=== PATIENT | female | born 1950 | race Caucasian/White ===

== ENCOUNTER → 2017-07-16 | Outpatient (CLI) | payer MEDICARE, BC | LOC: M WHC 11:55 | DX: Z12.31 Encounter for screening mammogram for malignant neoplasm of breast (principal) | CPT/HCPCS: 77067 ==

== ENCOUNTER → 2018-07-26 | Outpatient (CLI) | payer MEDICARE, BC ==
[~2018-07-26] MED LIST: CALC500T49 PO; FIBE625T PO; GLUC15002 PO; MULT1TAB10 PO; TRIAMT/HCTZ PO
--- NOTE | 2018-07-26 09:51 | REPMRS ---
Patient History The patient states she had a clinical breast exam in 07/09 Family history of colorectal cancer at age 50 or over in mother. Digital Woman Screen Mammo: July 26, 2018 - Exam #: [id number] Bilateral CC and MLO view(s) were taken. Technologist: Alisa Kiran, Technologist Prior study comparison: July 16, 2017, digital woman screen mammo performed at [facility]. May 22, 2016, digital woman screen mammo performed at [facility]. May 21, 2015, digital woman screen mammo performed at [facility]. FINDINGS: There are scattered fibroglandular densities. There is a stable benign intramammary lymph node in the upper outer quadrant on the left again noted. There has been no change in the appearance of the mammogram from the prior studies. There is a mild amount of scattered fibroglandular density which is fairly symmetric. There is no interval development of dominant mass, architectural distortion, or clustered microcalcification suggestive of malignancy. 3-D tomosynthesis shows no additional findings. Assessment: BI-RADS/ACR category 2 mammogram. Benign Findings. Recommendation Routine screening mammogram of both breasts in 1 year (for women over age 40). This patient's Lifetime Breast Cancer RIsk is estimated at 5.1 %. This mammogram was interpreted with the aid of an FDA-approved computer-aided dectection system. Electronically Signed By: Deven Smith MD 07/26/18 [id number]
--- NOTE | 2018-07-27 15:29 | DEXA ---
AP SPINE L1 - L4 1.073 -1.0 0.7 LT FEMUR TOTAL 0.931 -0.6 0.9 LT NECK 0.954 -0.6 1.1 RT FEMUR TOTAL 0.964 -0.3 1.1 RT NECK 0.895 -1.0 0.7 TOTAL BODY TOTAL OTHER COMMENTS: Normal bone densitometry of the left hip. There is low bone density of the spine. There is low bone density of the right hip. The density of the spine has decreased 2.3% since the initial exam on 01/01/2016. The spine density has decreased 3.2% since the most recent exam on 05/06/2011. The density of the left hip has decreased 18.6% since the initial exam on 01/01/2016. The density of the left hip has decreased 11.0% since the most recent exam on 05/06/2011. The density of the right hip has decreased 12.9% since the initial exam on 01/01/2016. The density of the right hip has decreased 8.5% since the most recent exam on 05/06/2011. FOLLOW-UP: Recommendation for the next bone density exam: 2 years. KARLI
== END ==
LOC: M WHC 07:49
PROVIDERS: ATTEND Nurse Practitioner Family
DX: Z12.31 Encounter for screening mammogram for malignant neoplasm of breast (principal); Z13.820 Encounter for screening for osteoporosis

== ENCOUNTER 2018-08-03 07:08 | Day surgery (SDC) | payer MEDICARE, BC, OTHER ==
[~2018-08-03] VITALS: Ht 162.6 cm; Wt 67.9 kg
[~2018-08-03 07:08] MED LIST changes: +LIDOCAINE 2% INJ 100 MG/5 ML SDV (FOR ANES.) As Ordered ONE; +PROPOFOL 200 MG/20 ML VIAL As Ordered ONE
[2018-08-03] MEDS ORDERED: NS 1,000 ML IV ONE (07:30)
--- NOTE | 2018-08-03 08:03 | ROOR ---
Patient Name: Phyllis Lemus Procedure Date: 08/03/2018 7:34 AM Date of : 1950 Age: 68 Room: [facility] Gender: Female Note Status: Finalized Procedure: Total Colonoscopy to Cecum + Biopsy Polypectomy Indications: Colon cancer screening in patient at increased risk: Colorectal cancer in mother, Last colonoscopy: 2013 Providers: Stone Rodríguez MD Referring MD: KOLE CARDENAS NP Requesting Provider: Medicines: Monitored Anesthesia Care Complications: No immediate complications. Procedure: Pre-Anesthesia Assessment: - The heart rate, respiratory rate, oxygen saturations, blood pressure, adequacy of pulmonary ventilation, and response to care were monitored throughout the procedure. The Colonoscope was introduced through the anus and advanced to the cecum, identified by appendiceal orifice and ileocecal valve. The colonoscopy was performed without difficulty. The patient tolerated the procedure well. The quality of the bowel preparation was good. Findings: The perianal and digital rectal examinations were normal. Non-bleeding internal hemorrhoids were found during retroflexion. The hemorrhoids were small and Grade I (internal hemorrhoids that do not prolapse). Multiple small and large-mouthed diverticula were found in the recto-sigmoid colon, sigmoid colon and descending colon. A diminutive polyp was found at 50 cm proximal to the anus. The polyp was sessile. The polyp was removed with a jumbo cold forceps. Resection and retrieval were complete. The exam was otherwise without abnormality on direct and retroflexion views. Impression: - Non-bleeding internal hemorrhoids. - Diverticulosis in the recto-sigmoid colon, in the sigmoid colon and in the descending colon. - One diminutive polyp at 50 cm proximal to the anus, removed with a jumbo cold forceps. Resected and retrieved. - The examination was otherwise normal on direct and retroflexion views. - The exam was otherwise normal to the cecum. Recommendation: - Patient has a contact number available for emergencies. The signs and symptoms of potential delayed complications were discussed with the patient. Return to normal activities tomorrow. Written discharge instructions were provided to the patient. - High fiber diet. - Discharge patient to home. - Continue present medications. - Await pathology results. - Telephone GI clinic for pathology results in 1 week. - Repeat colonoscopy in 5 years for screening purposes. - Return to referring physician. - Check Portal Online for Path Results.([email or web address]) - The findings and recommendations were discussed with the patient's family. Stone Rodríguez MD Stone Rodríguez MD 08/03/2018 8:02:46 AM This report has been signed electronically. Number of Addenda: 0 Note Initiated On: 08/03/2018 7:34 AM Estimated Blood Loss: Estimated blood loss: none.
[2018-08-03 08:25] VITALS: BP 125/79
== END 2018-08-03 08:42 | disposition home or self-care (01) ==
LOC: M OPP 07:08
PROVIDERS: ATTEND Internal Medicine Gastroenterology
DX: Z12.11 Encounter for screening for malignant neoplasm of colon (principal); Z80.0 Family history of malignant neoplasm of digestive organs; K64.0 First degree hemorrhoids; D12.6 Benign neoplasm of colon, unspecified; K57.30 Diverticulosis of large intestine without perforation or abscess without bleeding; Z79.899 Other long term (current) drug therapy

== ENCOUNTER 2020-03-15 11:17 | Emergency (ER) | payer MEDICARE, BC, OTHER ==
[~2020-03-15 11:17] MED LIST changes: -LIDOCAINE 2% INJ 100 MG/5 ML SDV (FOR ANES.) As Ordered ONE; -PROPOFOL 200 MG/20 ML VIAL As Ordered ONE
--- NOTE | 2020-03-15 11:59 | REPVR ---
PROCEDURE INFORMATION: Exam: CT Maxillofacial Without Contrast Exam date and time: 03/15/2020 11:23 AM Age: 70 years old Clinical indication: Injury or trauma; Fall; Initial encounter; Blunt trauma (contusions or hematomas); Nose TECHNIQUE: Imaging protocol: Computed tomography images of the face without contrast. Radiation optimization: All CT scans at this facility use at least one of these dose optimization techniques: automated exposure control; mA and/or kV adjustment per patient size (includes targeted exams where dose is matched to clinical indication); or iterative reconstruction. COMPARISON: No relevant prior studies available. FINDINGS: Orbits: Orbits are normal. Globes are unremarkable. Bones/joints: There is a comminuted and focally depressed right zygoma fracture. There is a nondisplaced right lateral orbital wall fracture. There is a comminuted fracture of the right inferolateral maxillary sinus wall. There is a nondisplaced right anterior maxillary sinus wall fracture. Paranasal sinuses: There is opacification of scattered ethmoid air cells. There is an air-fluid level within the right maxillary sinus. Soft tissues: There is right periorbital/facial soft tissue swelling. IMPRESSION: Multifocal right facial fractures. Electronically signed by: Sydnie King On 03/15/2020 11:58:44 AM
[2020-03-15] MEDS ORDERED: ONDANSETRON 4 MG ORAL DISINTEGRATING TAB PO ONE (12:15)
[2020-03-15] MEDS ORDERED: ACETAMINOPHEN TAB 650MG DOSE (2X325MG) PO ONE (12:15)
[2020-03-15] MEDS ORDERED: BOOSTRIX/ADACEL VACCINE (DIPHTH/PERTUSS/ACELL/TETANUS) 0.5ML SYR IM ONE (12:15)
--- NOTE | 2020-03-15 12:16 | REPVR ---
PROCEDURE INFORMATION: Exam: CT Head Without Contrast Exam date and time: 03/15/2020 11:22 AM Age: 70 years old Clinical indication: Injury or trauma; Fall; Initial encounter; Blunt trauma (contusions or hematomas) TECHNIQUE: Imaging protocol: Computed tomography of the head without contrast. Radiation optimization: All CT scans at this facility use at least one of these dose optimization techniques: automated exposure control; mA and/or kV adjustment per patient size (includes targeted exams where dose is matched to clinical indication); or iterative reconstruction. COMPARISON: No relevant prior studies available. FINDINGS: Brain: There is no acute intracranial hemorrhage or mass effect. Mild diffuse volume loss is within the range of normal for patient age. There are small vessel ischemic changes within the periventricular and subcortical white matter, but the normal garcia/white matter delineation is maintained. Cerebral ventricles: No ventriculomegaly. Bones/joints: There are incompletely imaged right zygoma, right lateral orbital wall and right maxillary sinus fractures, seen to better advantage on the concurrent CT maxillofacial examination reported separately. Paranasal sinuses: Hemorrhage layers within the right maxillary sinus. Mastoid air cells: Visualized mastoid air cells are well aerated. Soft tissues: Unremarkable. IMPRESSION: No acute hemorrhage or calvarial fracture. Right facial fractures Electronically signed by: Sydnie King On 03/15/2020 12:16:01 PM
--- NOTE | 2020-03-15 12:18 | REPVR ---
PROCEDURE INFORMATION: Exam: CT Cervical Spine Without Contrast Exam date and time: 03/15/2020 11:22 AM Age: 70 years old Clinical indication: Injury or trauma; Fall; Initial encounter; Blunt trauma TECHNIQUE: Imaging protocol: Computed tomography images of the cervical spine without contrast. Radiation optimization: All CT scans at this facility use at least one of these dose optimization techniques: automated exposure control; mA and/or kV adjustment per patient size (includes targeted exams where dose is matched to clinical indication); or iterative reconstruction. COMPARISON: No relevant prior studies available. FINDINGS: Vertebrae: There is straightening of the normal cervical lordosis. No acute fracture. Normal alignment. Discs/Spinal canal/Neural foramina: There is moderate to severe intervertebral disc space loss at C5/. There is multilevel facet hypertrophy asymmetric to the left. Soft tissues: Thyroid gland is diffusely enlarged with small nodules. Lungs: Lung apices are normal. IMPRESSION: No acute fracture. Electronically signed by: Sydnie King On 03/15/2020 12:18:11 PM
[2020-03-15] MEDS ORDERED: LIDOCAINE W/EPINEPHRINE 1% 20ML VIAL SC ONE (12:45)
[2020-03-15] MEDS ORDERED: NS 500 ML IV ONE (13:45)
[2020-03-15 14:08] LABS: BASO % 0.3 % (0.0-1.0); EOS # 0.2 10^3/uL (0.0-0.5); EOS % 1.9 % (0.0-3.0); HEMATOCRIT 40.6 % (36.0-47.0); HEMOGLOBIN 13.7 g/dl (12.0-15.5); LYMPH # 0.7 10^3/uL (1.5-5.0); LYMPH % 6.9 % (24.0-44.0); MEAN CORPUSCULAR HEMOGLOBIN 30.9 pg (27.0-33.0); MEAN CORPUSCULAR HGB CONC 33.7 g/dl (32.0-36.5); MEAN CORPUSCULAR VOLUME 91.6 fl (80.0-96.0); MONO # 0.6 10^3/uL (0.0-0.8); MONO % 5.7 % (0.0-5.0); NEUTROPHILS # 8.7 10^3/uL (1.5-8.5); NEUTROPHILS % 84.9 % (36.0-66.0); PLATELET COUNT, AUTOMATED 197 10^3/uL (150-450); RED BLOOD COUNT 4.43 10^6/uL (4.00-5.40); WHITE BLOOD COUNT 10.3 10^3/uL (4.0-10.0)
[2020-03-15 14:37] LABS: BLOOD UREA NITROGEN 13 MG/DL (7-18); CALCIUM LEVEL 9.6 MG/DL (8.8-10.2); CARBON DIOXIDE LEVEL 31 MEQ/L (21-32); CHLORIDE LEVEL 99 MEQ/L (98-107); CK-MB VALUE MASS 10.7 NG/ML (<3.6); CPK CREATINE PHOSPHOKINASE 506 U/L (26-192); CREATININE FOR GFR 0.72 MG/DL (0.55-1.30); GLOMERULAR FILTRATION RATE > 60.0 (>39); GLUCOSE, FASTING 122 MG/DL (70-100); MB/CK RELATIVE INDEX 2.11 (< OR =4); SODIUM LEVEL 135 MEQ/L (136-145); TROPONIN I < 0.02 NG/ML (< 0.10)
[2020-03-15] MEDS ORDERED: POTASSIUM CHLORIDE 10 MEQ SR TABLET PO ONE (15:30)
[2020-03-15] MEDS ORDERED: K-TA10TA2 PO (15:31)
[2020-03-15] MEDS ORDERED: ZOFR4TAB16 PO (15:31)
[2020-03-15 15:42] VITALS: BP 157/79
--- NOTE | 2020-03-15 18:12 | ED PDOC ---
Post-Departure Follow-Up dr llanes and deepa chung faxed formal report of ct max fac for fu Harrison Sterling MD Mar 15, 2020 18:11
--- NOTE | 2020-03-15 18:20 | ECGEPIP ---
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
== END 2020-03-15 15:45 | disposition home or self-care (01) ==
LOC: M ED 11:17
DX: S02.92XA Unspecified fracture of facial bones, initial encounter for closed fracture (principal); S01.81XA Laceration without foreign body of other part of head, initial encounter; W22.8XXA Striking against or struck by other objects, initial encounter; Y92.018 Other place in single-family (private) house as the place of occurrence of the external cause; I10 Essential (primary) hypertension; Z79.899 Other long term (current) drug therapy
CPT/HCPCS: 12011; 36415; 70450; 70486; 72125; 80048; 82550; 82553; 84484; 85025; 90471; 90715; 93005; 96360; 99284; Q0162

== ENCOUNTER 2020-03-22 15:15 | Emergency (ER) | payer MEDICARE, BC, OTHER ==
[~2020-03-22] VITALS: Ht 162.6 cm; Wt 66.9 kg
[~2020-03-22 15:15] MED LIST changes: +K-TA10TA2 PO; +ZOFR4TAB16 PO
[2020-03-22 15:16] VITALS: BP 139/80
[2020-03-22] MEDS ORDERED: TRIA37.53 (15:22)
== END 2020-03-22 16:19 | disposition home or self-care (01) ==
LOC: M ED 15:15
DX: Z48.02 Encounter for removal of sutures (principal); I10 Essential (primary) hypertension

== ENCOUNTER → 2020-12-20 | Outpatient (CLI) | payer MEDICARE, BC ==
[~2020-12-20] MED LIST changes: +TRIA37.53
--- NOTE | 2020-12-20 14:30 | REPMRS ---
Patient History The patient states she has not had a clinical breast exam in over a year. Patient is postmenopausal. Family history of colorectal cancer at age 50 or over in mother. No Hormone Replacement Therapy Patient states no breast complaints today. Patient has signed MRS History Sheet. Digital Woman Screen Mammo: December 20, 2020 - Exam #: [id number] Bilateral CC and MLO view(s) were taken. Technologist: Jackelyn Holder, Technologist Prior study comparison: July 26, 2018, bilateral digital woman screen mammo performed at [facility]. July 16, 2017, digital woman screen mammo performed at [facility]. May 22, 2016, digital woman screen mammo performed at [facility]. FINDINGS: There are scattered fibroglandular densities. The Volpara volumetric breast density category is:B. There has been no change in the appearance of the mammogram from the prior studies. There is a mild amount of scattered fibroglandular density which is fairly symmetric. There is no interval development of dominant mass, architectural distortion, or grouped microcalcification suggestive of malignancy. 3-D tomosynthesis shows no additional findings. Assessment: BI-RADS/ACR category 1 mammogram. Negative Mammogram. Recommendation Routine screening mammogram of both breasts in 1 year (for women over age 40). This patient's [facility] Lifetime Breast Cancer Risk is estimated at 4.5 %. This mammogram was interpreted with the aid of an FDA-approved computer-aided dectection system. Electronically Signed By: Deven Smith MD 12/20/20 [id number]
--- NOTE | 2020-12-20 14:53 | DEXAMM ---
INDICATION: M85.80 [facility] DISRD OF BONE DENSITY AND STRUCTURE. COMPARISON: Most recent comparison study July 26, 2018.. TECHNIQUE: Bone density was measured using dual-energy x-ray absorptionmetry (DEXA). FINDINGS: AP SPINE L1-L4 BMD 1.113 g/cm2 Young Adult T-Score -0.7 Age Matched Z-Score 1.1. LT FEMUR, TOTAL BMD 0.950 g/cm2 Young Adult T-Score -0.5 Age Matched Z-Score 1.1. LT NECK BMD 0.901 g/cm2 Young Adult T-Score -1.0 Age Matched Z-Score 0.8. RT FEMUR, TOTAL BMD 0.983 g/cm2 Young Adult T-Score -0.2 Age Matched Z-Score 1.2. RT NECK BMD 0.817 g/cm2 Young Adult T-Score -1.6 Age Matched Z-Score 0.2. IMPRESSION: There is normal bone density of the spine. There is normal bone density of the left hip. There is low bone density of the right hip. The density of the spine has increased 1.4% since the initial exam on December 31, 2005. The density of the spine increased 3.7% since most recent exam on July 26, 2018. The density of the left hip has decreased 17.0% since initial exam on December 31, 2005. The density of the left hip has increased 2.0% since most recent exam on July 26, 2018. The density of the right hip has decreased 11.2% since the initial exam on December 31, 2005. The density of the right hip has increased 2.0% since the most recent exam on July 26, 2018. FOLLOW-UP: Recommendation for the next bone density exam: 2 years. <Electronically signed by Deven Smith > 12/20/20 [id number]
== END ==
LOC: M WHC 13:20
PROVIDERS: ATTEND Registered Nurse
DX: Z12.31 Encounter for screening mammogram for malignant neoplasm of breast (principal); N64.89 Other specified disorders of breast; Z80.0 Family history of malignant neoplasm of digestive organs; M85.851 Other specified disorders of bone density and structure, right thigh

== ENCOUNTER → 2021-09-08 | Outpatient (CLI) | payer MEDICARE, BC | LOC: M WUC 12:32 | PROVIDERS: ATTEND Registered Nurse | DX: M79.644 Pain in right finger(s) (principal) ==

== ENCOUNTER → 2021-10-21 | Outpatient (CLI) | payer MEDICARE, BC, OTHER ==
[2021-10-21 14:30] LABS: BLOOD UREA NITROGEN 15 MG/DL (7-18); CREATININE FOR GFR 0.72 MG/DL (0.55-1.30); GLOMERULAR FILTRATION RATE > 60.0 (>39)
== END ==
LOC: M LAB 12:42
PROVIDERS: ATTEND Orthopaedic Surgery Hand Surgery
DX: R22.31 Localized swelling, mass and lump, right upper limb (principal)

== ENCOUNTER → 2021-11-11 | Outpatient (CLI) | payer MEDICARE, BC, OTHER ==
[~2021-11-11] MED LIST changes: +PROHANCE 279.3MG/ML 15ML VIAL As Ordered ONE
== END ==
LOC: M PLAIMG 10-15 06:48 → M RAD 07:16
PROVIDERS: ATTEND Orthopaedic Surgery Hand Surgery
DX: L03.123 Acute lymphangitis of right upper limb (principal); M19.041 Primary osteoarthritis, right hand
CPT/HCPCS: 73220; A9576

== ENCOUNTER → 2021-11-27 | Outpatient (CLI) | payer MEDICARE, BC, OTHER ==
[~2021-11-27] MED LIST changes: +CALCTAB64 PO; +CVS1CHW13 PO; +FAMO20TA PO; +PROBCAP14 PO; -PROHANCE 279.3MG/ML 15ML VIAL As Ordered ONE; -TRIA37.53; +TRIA37.577 PO; +VITMTA PO; +[UNRECOGNIZED DRUG - CODE] PO
== END ==
LOC: M LABSMTC 09:30
PROVIDERS: ATTEND Anesthesiology
DX: Z01.812 Encounter for preprocedural laboratory examination (principal); Z20.822 Contact with and (suspected) exposure to COVID-19

== ENCOUNTER → 2021-11-27 | Outpatient (REF) | payer MEDICARE, BC, OTHER | LOC: M LAB REF 11:01 | PROVIDERS: ATTEND Internal Medicine | DX: M15.9 Polyosteoarthritis, unspecified (principal) ==

== ENCOUNTER 2021-12-01 09:35 | Day surgery (SDC) | payer MEDICARE, BC, OTHER ==
[~2021-12-01] VITALS: Ht 162.6 cm; Wt 64.0 kg
[~2021-12-01 09:35] MED LIST changes: +ceFAZolin SOD 2 GM in IV 1 EA IV ONE
[2021-12-01] MEDS ORDERED: LR 1,000 ML IV SCH ×2 (09:50→12:15)
[2021-12-01] MEDS ORDERED: LIDOCAINE 2% 100MG/5ML SDV (FOR ANES.) As Ordered ONE (10:39)
[2021-12-01] MEDS ORDERED: propofoL 200 MG/20 ML VIAL As Ordered ONE (10:39)
[2021-12-01] MEDS ORDERED: fentaNYL 100 MCG/2 ML INJECTION As Ordered ONE (10:40)
[2021-12-01] MEDS ORDERED: BUPIVACAINE HCL 0.25% 30ML VIAL As Ordered ONE (10:51)
[2021-12-01] MEDS ORDERED: BACITRACIN OINTMENT 30GM TUBE As Ordered ONE (10:51)
[2021-12-01] MEDS ORDERED: ePHEDrine SULFATE 25 MG/5 ML(5MG/ML) SYRINGE As Ordered ONE (11:24)
[2021-12-01] MEDS ORDERED: dexameTHASONE 4 MG/ML 1ML VIAL (J1100 PER 1MG) As Ordered ONE (11:30)
[2021-12-01] MEDS ORDERED: ONDANSETRON 4MG 2ML VIAL As Ordered ONE (11:30)
[2021-12-01] MEDS ORDERED: ceFAZolin 1GM VIAL (J0690 PER 500MG) As Ordered ONE (11:33)
[2021-12-01] MEDS ORDERED: KETOROLAC 60MG 2ML VIAL As Ordered ONE (11:51)
[2021-12-01] MEDS ORDERED: fentaNYL 100 MCG/2 ML INJECTION IV PRN (12:15)
[2021-12-01] MEDS ORDERED: HYDROMORPHONE HCL 0.5 MG/ 0.5 ML SYRINGE (J1170 PER 1) IV PRN (12:15)
[2021-12-01] MEDS ORDERED: oxyCODONE 5MG TAB PO PRN (12:15)
[2021-12-01] MEDS ORDERED: ONDANSETRON 4MG 2ML VIAL IV PRN (12:15)
[2021-12-01 13:00] VITALS: BP 137/71
== END 2021-12-01 13:20 | disposition home or self-care (01) ==
LOC: M OR 09:35 → M SDC 09:35 → UNDOADMIN 09:35 → EDSTATUS 11:15 → M SDC 13:20
PROVIDERS: ATTEND Orthopaedic Surgery Hand Surgery
DX: M85.641 Other cyst of bone, right hand (principal); I10 Essential (primary) hypertension; K21.9 Gastro-esophageal reflux disease without esophagitis; G47.30 Sleep apnea, unspecified; Z79.899 Other long term (current) drug therapy
CPT/HCPCS: 11044; 26105; 76000; 87070; 87075; 87102; 87116; 87205; 87206; 88304; J0690; J1885; J2405; J3010

== ENCOUNTER → 2021-12-04 | Outpatient (CLI) | payer MEDICARE, BC, OTHER ==
[~2021-12-04] MED LIST changes: -ceFAZolin SOD 2 GM in IV 1 EA IV ONE
== END ==
LOC: M SOG 08:19
PROVIDERS: ATTEND Orthopaedic Surgery Hand Surgery
DX: Z48.89 Encounter for other specified surgical aftercare (principal); B99.9 Unspecified infectious disease; M79.89 Other specified soft tissue disorders

== ENCOUNTER → 2021-12-11 | Outpatient (CLI) | payer MEDICARE, BC, OTHER | LOC: M SOG 08:27 | PROVIDERS: ATTEND Orthopaedic Surgery Hand Surgery | DX: M79.89 Other specified soft tissue disorders (principal) ==

== ENCOUNTER → 2023-01-05 | Outpatient (CLI) | payer MEDICARE, BC, OTHER ==
[~2023-01-05] MED LIST changes: -K-TA10TA2 PO; +POTA-165 PO
== END ==
LOC: M WHC 09:06
PROVIDERS: ATTEND Internal Medicine
DX: Z12.31 Encounter for screening mammogram for malignant neoplasm of breast (principal); M85.80 Other specified disorders of bone density and structure, unspecified site

== ENCOUNTER → 2023-07-08 | Outpatient (CLI) | payer MEDICARE, BC, OTHER | LOC: M WUC 11:58 | PROVIDERS: ATTEND Nurse Practitioner Family | DX: M47.816 Spondylosis without myelopathy or radiculopathy, lumbar region (principal); M16.11 Unilateral primary osteoarthritis, right hip ==

== ENCOUNTER → 2023-08-19 | Outpatient (RCR) | payer MEDICARE, BC, OTHER | LOC: M PT 07-22 10:19 | PROVIDERS: ATTEND Physical Medicine & Rehabilitation | DX: M51.36 Other intervertebral disc degeneration, lumbar region (principal); M47.896 Other spondylosis, lumbar region; M47.897 Other spondylosis, lumbosacral region ==

== ENCOUNTER 2023-10-20 07:52 | Day surgery (SDC) | payer MEDICARE, BC ==
[~2023-10-20] VITALS: Ht 162.6 cm; Wt 68.4 kg
[~2023-10-20 07:52] MED LIST changes: +GLUCCAP2 PO; +LIDOCAINE 2% 100MG/5ML SDV (FOR ANES.) As Ordered ONE; +THERTAB52 PO; +fentaNYL 100 MCG/2 ML INJECTION As Ordered ONE; +propofoL 200 MG/20 ML VIAL As Ordered ONE
[2023-10-20] MEDS: NS 1,000 ML IV ONE (08:13)
[2023-10-20 10:02] VITALS: BP 101/63; O2SAT 98
== END 2023-10-20 10:18 | disposition home or self-care (01) ==
LOC: M OPP 07:52
PROVIDERS: ATTEND Internal Medicine Gastroenterology
DX: Z12.11 Encounter for screening for malignant neoplasm of colon (principal); K21.00 Gastro-esophageal reflux disease with esophagitis, without bleeding; K64.0 First degree hemorrhoids; K29.50 Unspecified chronic gastritis without bleeding; K57.30 Diverticulosis of large intestine without perforation or abscess without bleeding; K44.9 Diaphragmatic hernia without obstruction or gangrene; Z80.0 Family history of malignant neoplasm of digestive organs; Z90.49 Acquired absence of other specified parts of digestive tract; I10 Essential (primary) hypertension; Z79.899 Other long term (current) drug therapy; R32 Unspecified urinary incontinence
CPT/HCPCS: 43239; 88305; G0105; J3010

== ENCOUNTER → 2025-03-22 | Outpatient (REF) | payer MEDICARE, BC ==
[~2025-03-22] MED LIST changes: -LIDOCAINE 2% 100MG/5ML SDV (FOR ANES.) As Ordered ONE; -fentaNYL 100 MCG/2 ML INJECTION As Ordered ONE; -propofoL 200 MG/20 ML VIAL As Ordered ONE
[2025-03-22 13:54] LABS: C REACTIVE PROTEIN QUANTITATIV < 0.50 MG/DL (<1.0)
[2025-03-22 13:55] LABS: RHEUMATOID FACTOR QUANT < 3.5 IU/ML (<14)
== END ==
LOC: M LAB REF 12:30
PROVIDERS: ATTEND Internal Medicine
DX: M79.675 Pain in left toe(s) (principal); M85.80 Other specified disorders of bone density and structure, unspecified site; H91.93 Unspecified hearing loss, bilateral

== ENCOUNTER → 2025-03-23 | Outpatient (CLI) | payer MEDICARE, BC | LOC: M RAD 10:29 | PROVIDERS: ATTEND Internal Medicine | DX: M18.11 Unilateral primary osteoarthritis of first carpometacarpal joint, right hand (principal); M19.041 Primary osteoarthritis, right hand; M79.89 Other specified soft tissue disorders ==